=== PATIENT | male | born 1955 | race Caucasian/White ===

== ENCOUNTER 2018-05-08 08:56 | Outpatient (RCR) | payer BC | END 2018-05-09 | LOC: PT 08:56 | PROVIDERS: ATTEND Neurological Surgery | DX: M47.812 Spondylosis without myelopathy or radiculopathy, cervical region (principal); M48.061 Spinal stenosis, lumbar region without neurogenic claudication; M79.602 Pain in left arm; M79.601 Pain in right arm; M79.605 Pain in left leg; M54.5 Low back pain; M62.81 Muscle weakness (generalized); R20.2 Paresthesia of skin ==

== ENCOUNTER 2018-05-24 08:00 | Outpatient (RCR) | payer BC | END 2018-06-09 | LOC: PT 08:00 | PROVIDERS: ATTEND Neurological Surgery | DX: M47.812 Spondylosis without myelopathy or radiculopathy, cervical region (principal); M48.061 Spinal stenosis, lumbar region without neurogenic claudication; M54.5 Low back pain; M79.602 Pain in left arm; M79.605 Pain in left leg; M62.81 Muscle weakness (generalized); R20.2 Paresthesia of skin ==

== ENCOUNTER 2021-02-04 08:52 | Outpatient (RCR) | payer BC | END 2021-02-06 | LOC: PT 08:52 | PROVIDERS: ATTEND Neurological Surgery | DX: M50.120 Mid-cervical disc disorder, unspecified level (principal) ==

== ENCOUNTER 2021-02-16 16:00 | Outpatient (RCR) | payer BC | END 2021-03-09 | LOC: PT 16:00 | PROVIDERS: ATTEND Neurological Surgery | DX: M50.120 Mid-cervical disc disorder, unspecified level (principal) ==

== ENCOUNTER 2023-07-21 09:57 | Outpatient (RCR) | payer BC | END 2023-08-09 | LOC: OT 09:57 | PROVIDERS: ATTEND Orthopaedic Surgery | DX: M72.0 Palmar fascial fibromatosis [Dupuytren] (principal) ==

== ENCOUNTER 2023-08-18 08:44 | Outpatient (RCR) | payer BC | END 2023-09-08 | LOC: OT 08:44 | PROVIDERS: ATTEND Orthopaedic Surgery | DX: M72.0 Palmar fascial fibromatosis [Dupuytren] (principal); G56.22 Lesion of ulnar nerve, left upper limb ==